=== PATIENT | male | born 1965 | race Caucasian/White ===

== ENCOUNTER → 2024-12-28 | Outpatient (CLI) | payer MEDICAID, SELFPAY ==
[2024-12-28 16:55] LABS: Hematocrit 39.1 % (40-54); Hemoglobin 12.2 g/dL (13.0-16.5); Immature Granulocytes Count 0.040 X10^3/uL (0.0-0.0); Mean Corp Hgb Conc 31.2 g/dL (32-36); Mean Corpuscular Volume 79.5 fL (80-94); Mean Platelet Vol. 9.7 fl (6.2-12.0); NRBC Flagged by Analyzer 0 % (0-5); POSITIVE DIFFERENTIAL YES; Platelet Count 524 K/mm3 (150-450); RBC Distribution Width CV 13.3 % (11.6-14.6); RBC Distribution Width SD 38.7 fl (35.1-43.9); Red Blood Count 4.92 M/mm3 (4.6-6.2); White Blood Count 11.2 K/mm3 (4.4-11.0)
[2024-12-28 17:26] LABS: AST(SGOT) 11 U/L (<=37); Alanine Aminotransfer ALT/SGPT 9 U/L (<=46); Albumin, Serum 3.7 g/dL (3.4-4.8); Alkaline Phosphatase 87 U/L (40-129); Anion Gap 15 (5-15); BUN 33 mg/dL (4-19); BUN/Creat Ratio 34.4 RATIO (10-20); Calcium,Total 9.1 mg/dL (7.6-11.0); Carbon Dioxide 23.6 mmol/L (21.0-32.0); Chloride 89 mmol/L (98-108); Cholesterol 115 mg/dL (<=200); Globulin 4.1 g/dL (2.2-4.2); Glucose 397 mg/dL (70-99); Low Density Lipoprotein Calc. 56 mg/dL; Potassium 5.5 mmol/L (3.3-5.1); Triglycerides 94 mg/dL; Very Low Density Lipoprotein 19 mg/dL (5-40); cholesterol:hdl ratio screen 2.80
[2024-12-28 17:32] LABS: Color, Urine Yellow (Yellow); Glucose, Dipstick 1000 mg/dl (Normal); Leukocyte Esterase-Dipstick Negative /ul (Negative); Nitrite-Dipstick Negative (Negative); Occult Blood-Urine Negative /ul (Negative); Protein-Dipstick 30 mg/dl (Negative); Specific Gravity, Urine 1.020 (1.002-1.030)
[2024-12-28 17:34] LABS: Urine Bilirubin Dipstick 1 mg/dL (Negative)
[2024-12-28 17:37] LABS: Ketone-Dipstick 150 mg/dl (Negative)
[2024-12-28 17:41] LABS: Creatinine, Urine (random) 145.00 mg/dL (39.00-259.00); Microalbumin,Random Urine 15.0 mg/L (<20 mg/L)
== END | disposition home or self-care (01) ==
LOC: VSLAB 11:29
DX: E11.9 Type 2 diabetes mellitus without complications (principal); Z13.220 Encounter for screening for lipoid disorders
CPT/HCPCS: 36415; 80053; 80061; 81002; 82043; 82570; 84443; 85025